=== PATIENT | female | born 1935 | race Caucasian/White ===

== ENCOUNTER 2021-09-17 11:13 | Emergency (ER) | payer OTHER ==
[2021-09-17 13:04] LABS: BASOPHIL 0.2 % (0-2); EOSINOPHIL 0.2 % (0-7); HCT 45.2 % (37.0-47.0); HGB 15.3 g/dl (12.5-16.0); LYMPHOCYTE 7.3 % (15-48); MCH 29.8 pg (25.0-31.0); MCHC 33.8 g/dL (32.0-36.0); MCV 88.1 fL (78.0-100.0); MPV 10.2 fL (6.0-9.5); NEUTROPHIL 88.8 % (41-80); NRBC 0; PLT 219 K/uL (150-400); RBC 5.13 M/uL (4.20-5.40); RDW 11.9 % (11.5-14.0); WBC 12.4 K/uL (4.0-10.5)
[2021-09-17 13:30] LABS: ALBUMIN 4.4 g/dL (3.4-5.0); BILIRUBIN - TOTAL 0.7 mg/dL (0.2-1.0); BUN/CREAT RATIO (CALC) 13.7 RATIO; CREATININE 0.95 mg/dL (0.51-0.95); GLOBULIN (CALCULATION) 4.7 g/dL; POTASSIUM 3.6 mmol/L (3.5-5.1); TOTAL PROTEIN 9.1 g/dL (6.4-8.2)
[2021-09-17 13:34] LABS: BILIRUBIN NEGATIVE (NEGATIVE); BLOOD 2+ Ery/uL (NEGATIVE); CLARITY CLEAR (CLEAR); COLOR YELLOW (YELLOW); GLUCOSE (U) TRACE mg/dL (NORMAL); LEUKOCYTES NEGATIVE Leu/uL (NEGATIVE); NITRITE NEGATIVE (NEGATIVE); PROTEIN 3+ mg/dL (NEGATIVE); SPECIFIC GRAVITY 1.025 (1.001-1.030); UROBILINOGEN 0.2 mg/dL (0.2-1.0); pH 6.5 (5.0-9.0)
[2021-09-17 14:13] LABS: BACTERIA TRACE; MUCOUS TRACE
[2021-09-17] MEDS ORDERED: NORCO 5-325 TA1 EACH PO (18:11)
[2021-09-17] MEDS ORDERED: CIPRO500 MG PO (18:11)
[2021-09-17] MEDS ORDERED: ONDANSETRON HCL4 MG PO (18:11)
[2021-09-17] MEDS ORDERED: FLOMAX0.4 MG PO (18:11)
== END 2021-09-17 18:30 | disposition home or self-care (01) ==
LOC: FER 11:13
PROVIDERS: Nurse Practitioner Family
DX: N13.2 Hydronephrosis with renal and ureteral calculous obstruction (principal); I10 Essential (primary) hypertension; Z91.048 Other nonmedicinal substance allergy status; Z28.310 Unvaccinated for COVID-19
CPT/HCPCS: 36415; 80053; 81001; 85025; J0696; J1170; J1885